=== PATIENT | male | born 1985 | race Caucasian/White ===

== ENCOUNTER 2017-06-19 10:05 | Inpatient (IN) | payer OTHER ==
[~2017-06-19] VITALS: Ht 177.8 cm; Wt 117.9 kg
[~2017-06-19 10:05] MED LIST: AMLO10TA2 PO; CHLO25TA2 PO; CLON0.1T14 PO; Gabapentin PO; HYDR-3895 PO; Naproxen PO
--- NOTE | 2017-06-19 11:50 | NUR ---
PRE-ADMISSION NOTE PT IS A 32 Y/O M, RECEIVED PT AT INTAKE FOR ETOH WITHDRAWAL. PT IS A/OX4, RESPIRATIONS EVEN AND UNLABORED. PT APPEARS NERVOUS, ANXIOUS, RESTLESS, HAS FACIAL FLUSHING, FINE TREMORS. INITIAL VS WERE BP: 141/92, HR: 94, RR: 18, O2 SAT: 97%. PT IS AMBULATORY WITH A STEADY GAIT. PT IS THE PRIMARY SOURCE OF INFO. PT REPORTS HAVING NKA. PAST MEDICAL HX OF HTN, DEPRESSION. 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 SX HX OF APPENDECTOMY. PT SMOKES 1 PACK DAILY. PT REPORTS HAVING FAMILY HX OF SUBSTANCE ABUSE. SUBSTANCE USE HX: 1. ETOH VODKA PO MORE OR EQUAL TO 1 LITER DAILY FOR 6 MONTHS. PT REPORTS LAST USED WAS 1.5 HRS AGO; PT STATES "I HAD 4 LARGE SWIGS OF VODKA." PT REPORTS HAVING WITHDRAWAL SYMPTOMS EVERY 2 HRS AND DRINKS WHEN HE STARTS TO FEEL SYMPTOMS. PT STATES HE IS CURRENTLY ANXIOUS AND STARTING TO SWEAT. PT REPORTS BEING ADMITTED PREVIOUSLY AT [facility] IN MAR 2016.
[2017-06-19 11:54] LABS: *AMPHETAMINE, URINE NEGATIVE (NEGATIVE); *BARBITURATE, URINE NEGATIVE (NEGATIVE); *CANNABINOID, URINE NEGATIVE (NEGATIVE); *COCCAINE, URINE NEGATIVE (NEGATIVE); *OPIATE, URINE NEGATIVE (NEGATIVE); *PHENCYCLIDINE SCREEN,URINE NEGATIVE (NEGATIVE)
[2017-06-19] MEDS ORDERED: DICYCLOMINE HCL 20 MG TABLET PO PRN (12:00)
[2017-06-19] MEDS ORDERED: LORAZEPAM 1 MG TABLET PO PRN (12:00)
[2017-06-19] MEDS ORDERED: MAG HYDROX/AL HYDROX/SIMETH 30 ML LIQUID UDC PO PRN (12:00)
[2017-06-19] MEDS ORDERED: THIAMINE HCL 200 MG/2 ML VIAL IM ONE (12:00)
[2017-06-19] MEDS ORDERED: LORAZEPAM 2 MG/1 ML VIAL IM PRN (12:00)
[2017-06-19] MEDS ORDERED: MIRALAX 17 GM POWD.PACK PO PRN (12:00)
[2017-06-19] MEDS ORDERED: ONDANSETRON ODT 4 MG TAB.RAPDIS SL PRN (12:00)
[2017-06-19] MEDS ORDERED: LOPERAMIDE HCL 2 MG CAPSULE PO PRN ×2 (12:00)
[2017-06-19] MEDS ORDERED: ACETAMINOPHEN 325 MG TABLET PO PRN (12:00)
[2017-06-19] MEDS ORDERED: MAGNESIUM HYDROXIDE 30 ML LIQUID UDC PO PRN (12:00)
[2017-06-19] MEDS ORDERED: ONDANSETRON 4 MG/2 ML VIAL IM PRN (12:00)
[2017-06-19 13:56] LABS: BASOPHILS % (AUTO) 0.6 % (0.0-2.0); EOSINOPHILS # (AUTO) 0.1 K/uL (0.0-0.7); HEMATOCRIT 40.6 % (36.7-47.1); HEMOGLOBIN 14.1 g/dL (12.5-16.3); LYMPHOCYTES # (AUTO) 1.8 K/uL (20.0-40.0); LYMPHOCYTES % (AUTO) 35.3 % (20.5-51.5); MEAN CORPUSCULAR HEMOGLOBIN 31.9 uug (23.8-33.4); MEAN CORPUSCULAR HGB CONC 35 g/dL (32.5-36.3); MONOCYTES # (AUTO) 0.3 K/uL (2.0-10.0); MONOCYTES % (AUTO) 5.2 % (0.0-11.0); NEUTROPHILS # (AUTO) 2.8 K/uL (1.8-8.9); NEUTROPHILS % (AUTO) 55.9 % (38.5-71.5); PLATELET COUNT (AUTO) 247 K/uL (152-348); RED BLOOD CELL COUNT(AUTO) 4.42 MIL/uL (4.06-5.63)
[2017-06-19 14:13] LABS: BILIRUBIN,TOTAL 0.5 mg/dL (0.2-1.0); MAGNESIUM 2.1 mg/dL (1.8-2.4); POTASSIUM 3.8 mmol/L (3.5-5.1); TOTAL PROTEIN, SERUM 7.4 g/dL (6.4-8.2)
--- NOTE | 2017-06-19 15:30 | NUR ---
ADMISSION NOTE PT IS A 32 Y/O M, ADMITTED ON 06/19/17 FOR MEDICALLY SUPERVISED ETOH WITHDRAWAL. PT IS A/OX4, RESPIRATIONS EVEN AND UNLABORED, LUNG SOUNDS BILATERALLY CLEAR. ALLL 4 ABD QUAD SOUNDS PRESENT, ABD IS SOFT AND NON-TENDER. PT HAS FACIAL FLUSHING, APPEARS ANXIOUS, RESTLESS, HAS FINE TREMORS AND MILD INTOXICATION. INITIAL VS WERE BP: 141/92, HR: 94, RR: 18, O2 SAT: 97%. PT'S HT IS 5'10 AND WT IS 260 LBS. PT IS FULLY AMBULATORY WITH A STEADY GAIT. SKIN IS INTACT. PT IS THE PRIMARY SOURCE OF INFO. PT REPORTS HAVING NKA. PAST MEDICAL HX OF HTN, DEPRESSION. HX OF SZ IN THE PAST R/T ETOH W/D. SX HX OF APPENDECTOMY. PT SMOKES 1 PACK DAILY. PT REPORTS HAVING FAMILY HX OF SUBSTANCE ABUSE. SUBSTANCE USE HX: 1. ETOH VODKA PO MORE OR EQUAL TO 1 LITER DAILY FOR 6 MONTHS. PT REPORTS LAST USED WAS 1.5 HRS PRIOR TO COMING INTO INTAKE; PT STATES "I HAD 4 LARGE SWIGS OF VODKA." PT REPORTS HAVING WITHDRAWAL SYMPTOMS EVERY 2 TO 3 HRS AND DRINKS WHEN HE STARTS TO FEEL SYMPTOMS SUCH NAUSEA, VOMITTING, DIAPHORESIS, EXTREME ANXIETY, AGITATION, HEADACHE AND GETS "SHAKY". PT STATES HE IS CURRENTLY ANXIOUS AND STARTING TO SWEAT. PT REPORTS BEING ADMITTED PREVIOUSLY AT [facility] IN MAR 2016 AND CONTINUED TX AT ABLE TO CHANGE AFTERWARDS. PT'S LONGEST PERIOD OF SOBRIETY IS 5 MONTHS BEFORE THIS CURRENT RELASPE. PT STATES HE IS TIRED OF FEELING W/D EVERY 2-3 HRS CAUSING LACK OF SLEEP, NEGATIVELY AFFECTING HIS WORK AND RELATIONSHIPS WITH FAMILY AND FRIENDS. PT REPORTS HIS DRINKING IS CAUSING HIM TO "MAKE MISTAKES" AND HIS GOAL IS BEING ABLE TO GET BACK TO WORK. PT REPORTS NOT BEING ABLE TO GET DISABILITY AND CONTINUE HIS MEDICATIONS AND THE TRAUMATIC EXPERIENCE OF FINDING HIS FATHER AFTER HANGING HIMSELF LED HIM TO SELF-MEDICATE. PT VERBALIZED HE IS COMMITED AND BELIEVES THIS TIME WILL BE DIFFERENT DUE TO HIS ACCEPTANCE OF "OUTSIDE HELP." PT IS PLACED ON A 5 DAY ATIVAN TAPER WITH PRN ATIVAN AND FALL AND SZ PRECAUTIONS. EDUCATED PT WITH UNIT RULES AND ORIENTED PT WITH UNIT AND STAFF MEMBERS. EDUCATED PT WITH PLAN OF CARE, S/S TO REPORT AND MED REGIMEN. SIDE RAILS UPX2 AND PADDED, BED IN LOW POSITION AND CALL LIGHT WITHIN REACH. WILL MONITOR AND PROVIDE CARE.
[2017-06-19 16:00] VITALS: BP 160/99
[2017-06-19] MEDS: LORAZEPAM 1 MG TABLET PO SCH ×2 (16:43→21:38)
[2017-06-19] MEDS ORDERED: AMLODIPINE 5 MG TABLET PO ONE (17:00)
--- NOTE | 2017-06-19 17:51 | NUR ---
PRN ATIVAN 2 MG PO PRN GIVEN FOR CIWA 17; PT PRESENTED FACIAL FLUSHING, INCREASED ANXIETY, INTENSE FEELINGS OF PANIC, AGITATION, RESTLESSNESS, NAUSEA, FIGETY, TREMORS NOTED, HAD POOR EYE CONTACT, PT STATED I'M NOT DOING GOOD" AND GRABBED AT HIS TORSO. WILL CONTINUE TO CLOSELY MONITOR.
[2017-06-19] MEDS: LORAZEPAM 1 MG TABLET PO PRN (17:52)
--- NOTE | 2017-06-19 18:51 | NUR ---
REASSESSMENT PT CIWA 15. PT STATES MED WAS EFFECTIVE MINIMALLY. WILL CONTINUE TO CLOSELY MONITOR.
--- NOTE | 2017-06-19 19:30 | NUR ---
START OF SHIFT Pt is a 32 y/o male admitted on 06/19/17 for ETOH withdrawal. PRN Ativan 2 mg and last CIWA 15 during day shift. Upon assessment pt presents with anxiety, restlessness, flat affect, increased HR and BP, disheveled appearance, unkempt room, unshaven, poor eye contact, guarded, difficulty sleeping, flushed skin, dysphoria and anhedonia. Medications due. Safety measures in place. Call light within reach. Will continue to monitor.
--- NOTE | 2017-06-19 19:31 | NUR ---
END OF SHIFT PT HAS BEEN ADMITTED ON THE FLOOR AT 1140. PT'S LAST CIWA 15 @1851. PT HAS INCREASED S/S OF W/D, PT PRESENTS HIGH ANXIETY, AGITATION, RESTLESSNESS, GROSS/FINE TREMORS, NAUSEA. PT HAS BEEN ISOLATIVE IN ROOM SINCE ADMISSION. PT ATE 50% OF MEALS, FLUID INTAKE: 796ML, VOIDED X1, BM 0. PT IS PLACED ON ATIVAN 5 DAY TAPER STARTING TODAY AND TOLERATING WELL. PT RECEIVED 1X ATIVAN 2MG PO PRN CIWA 17 @1751.
[2017-06-19 20:00] VITALS: BP 151/96
[2017-06-19] MEDS: CLONIDINE HCL 0.1 MG TABLET PO PRN (21:38)
--- NOTE | 2017-06-19 21:38 | NUR ---
PRN CLONIDINE ADMINISTRATION BP 151/96 HR 103, orders to give Clonidine. Safety measures in place. Call light within reach. Will continue to monitor.
--- NOTE | 2017-06-19 22:38 | NUR ---
PRN CLONIDINE REASSESSMENT BP 132/85 HR 92, Clonidine effective. Safety measures in place. Call light within reach. Will continue to monitor.
[2017-06-20] VITALS: BP 129/83
--- NOTE | 2017-06-20 | NUR ---
CIWA DEFERRED Pt laying in bed with eyes closed, CIWA deferred, to be assessed when pt is awake per orders. Respirations even and unlabored. Safety measures in place. Call light within reach. Will continue to monitor.
--- NOTE | 2017-06-20 07:00 | NUR ---
start of shift note: pt is in stable condition, no s/s of pain or discomfort, pt is sleeping in bed. pt is admitted to [facility] for ETOH withdrawal/dependence. pts last documented ciwa is 8. pt is tolerating ativan doses well without a/r reactions will continue to monitor pt for any changes.
--- NOTE | 2017-06-20 07:14 | NUR ---
END OF SHIFT Pt is a 32 y/o male admitted on 06/19/17 for ETOH withdrawal. Pt is on a 5 day Ativan taper that started on 06/19/17, tolerating well. Pt presented with anxiety, restlessness, flat affect, increased HR and BP, disheveled appearance, unkempt room, unshaven, poor eye contact, guarded, difficulty sleeping, flushed skin, dysphoria and anhedonia. Scheduled medications and PRN Clonidine administered, effective in S/S of withdrawal as verbalized by pt. Last CIWA 8. Pt slept 8 hours. Intake 1000 ml, void x 2, stool x 0. Safety measures in place. Call light within reach. Will continue to monitor.
[2017-06-20] MEDS: AMLODIPINE 5 MG TABLET PO SCH (08:59)
[2017-06-20] MEDS: FOLIC ACID 1 MG TABLET PO SCH (08:59)
[2017-06-20] MEDS: MULTIVITAMINS,THERAPEUTIC TABLET PO SCH (08:59)
[2017-06-20] MEDS: LORAZEPAM 1 MG TABLET PO SCH ×3 (08:59→20:19)
[2017-06-20] MEDS: THIAMINE HCL 100 MG TABLET PO SCH (08:59)
[2017-06-20] MEDS ORDERED: TUBERCULIN,PURIF.PROT.DERIV. 5 TU/0.1 ML TEST ID ONE (09:00)
[2017-06-20 10:08] VITALS: BP 120/77
[2017-06-20] MEDS: CLONIDINE HCL 0.1 MG TABLET PO PRN ×2 (12:10→20:19)
--- NOTE | 2017-06-20 12:13 | NUR ---
PRN administration: pt with increased B/p of 143/100, prn clonidine was administered. pt also verbalized increased anxiety, pt is noted with moderate tremors and inability to stay still. prn ativan 1 mg was administered for ciwa of 12 will monitor effectiveness of medications.
[2017-06-20 12:34] VITALS: BP 143/100
[2017-06-20 13:07] LABS: HEPATITIS B SURFACE AG Negative (Negative)
[2017-06-20 18:10] VITALS: BP 118/68
--- NOTE | 2017-06-20 18:42 | NUR ---
end of shift note: pt is admitted to [facility] for ETOH withdrawal/dependence. pt received prn ativan and clonidine in the afternoon and benefited from dose. pt fell asleep until dinner time. when assessing pt verbalized I'm feeing better offered medication and pt verbalized im ok right now thank you. last ciwa is 7. pt at this time is alert and oriented and just completed dinner. pt received a TB skin test and tolerated procedure well. pt tolerated ativan taper well without any A/R noted.
--- NOTE | 2017-06-20 19:30 | NUR ---
START OF SHIFT Pt is a 32 y/o male admitted on 06/19/17 for ETOH withdrawal. PRN Ativan and Clonidine administered and last CIWA 7 during day shift. Upon assessment pt presents with anxiety, restlessness, flat affect, increased HR and BP, tremors, intermittent nausea, intermittent sweats, intermittent headache, unshaven, numbness/pins and needles sensations in extremities, disheveled appearance, unkempt room, unshaven, poor eye contact, difficulty sleeping, flushed skin, dysphoria and anhedonia. Medications due. Safety measures in place. Call light within reach. Will continue to monitor.
[2017-06-20 20:00] VITALS: BP 157/102
--- NOTE | 2017-06-20 20:19 | NUR ---
PRN CLONIDINE ADMINISTRATION BP 157/102 and HR 131, orders to give Clonidine. Safety measures in place. Call light within reach. Will continue to monitor.
--- NOTE | 2017-06-20 21:19 | NUR ---
PRN CLONIDINE REASSESSMENT BP 145/94 and HR 107. Safety measures in place. Call light within reach. Will continue to monitor.
[2017-06-20] MEDS: LORAZEPAM 1 MG TABLET PO PRN (21:37)
--- NOTE | 2017-06-20 21:37 | NUR ---
PRN ATIVAN 2 MG ADMINISTRATION CIWA 13, pt presents with anxiety, restlessness, tremors, tactile disturbances in extremities. Safety measures in place. Call light within reach. Will continue to monitor.
--- NOTE | 2017-06-20 22:37 | NUR ---
PRN ATIVAN REASSESSMENT Pt laying in bed with eyes closed, medication noted effective. Safety measures in place. Call light within reach. Will continue to monitor.
[2017-06-21] VITALS (7 sets, daily range): BP systolic 101–153; BP diastolic 58–99
--- NOTE | 2017-06-21 06:57 | NUR ---
END OF SHIFT Pt is a 32 y/o male admitted on 06/19/17 for ETOH withdrawal. Pt is on a 5 day Ativan taper that started on 06/19/17, tolerating well. Pt presented with anxiety, restlessness, flat affect, increased HR and BP, tremors, intermittent nausea, intermittent sweats, intermittent headache, unshaven, numbness/pins and needles sensations in extremities, disheveled appearance, unkempt room, unshaven, poor eye contact, difficulty sleeping, flushed skin, dysphoria and anhedonia. Scheduled medications and PRN Clonidine and Ativan 2 mg administered, effective in S/S of withdrawal AEB CIWA 15 lowered to CIWA 13 during shift. Pt slept 7 hours. Intake 1250 ml, void x 3, stool x 0. Safety measures in place. Call light within reach. Pts needs have been met. Endorsed to day shift nurse.
--- NOTE | 2017-06-21 07:36 | NUR ---
START OF SHIFT Pt is a 32 yr old male, AA&Ox4. pt was admitted on 06/19/17 for ETOH withdrawal and is on 5 day Ativan taper as ordered. medication moises well. Received report from evening or night nurse supervisor nurse. Pt received Clonidine 0.1mg PO PRN for increase BP and Ativan PRN for s/s of w/d. Medication was effective. Pt slept for 7 hrs. Last CIWA score was 11. Pt is c/o anxiety this morning. Pt is noted with flat affect. Skin is intact, warm and moist to touch. Pt is on fall and seizure precautions. Call light is within reach. Will continue to monitor.
[2017-06-21] MEDS ORDERED: LORAZEPAM 1 MG TABLET PO SCH ×2 (09:00→21:00)
[2017-06-21] MEDS: AMLODIPINE 5 MG TABLET PO SCH (09:14)
[2017-06-21] MEDS: THIAMINE HCL 100 MG TABLET PO SCH (09:14)
[2017-06-21] MEDS: MULTIVITAMINS,THERAPEUTIC TABLET PO SCH (09:14)
[2017-06-21] MEDS: FOLIC ACID 1 MG TABLET PO SCH (09:14)
--- NOTE | 2017-06-21 09:18 | NUR ---
PRN GIVEN Pt c/o heartburn after breakfast. Maalox 30ml PRN was given as ordered. Medication moises well. Will continue to monitor.
--- NOTE | 2017-06-21 10:18 | NUR ---
PRN RE-ASSESSMENT Maalox 30ml PRN was effective. Pt denies any heartburn at this time. Will continue to monitor.
[2017-06-21] MEDS: LORAZEPAM 1 MG TABLET PO SCH ×2 (13:20→17:00)
[2017-06-21] MEDS: CLONIDINE HCL 0.1 MG TABLET PO PRN (13:22)
--- NOTE | 2017-06-21 13:24 | NUR ---
PRN GIVEN Pt c/o increase anxiety and states he feels like he has "palpitations". BP was noted at 153/99 and HR at 120. Clonidine 0.1mg PO PRN was given for increase BP and Ativan 1mg PO as scheduled at 1300 was given. Encouraged increase fluid intake. Will continue to monitor.
--- NOTE | 2017-06-21 14:33 | NUR ---
PRN RE-ASSESSMENT Clonidine 0.1mg PO PRN was effective. BP is 146/89 and HR 110. Encouraged increase fluids. Will continue to monitor.
--- NOTE | 2017-06-21 17:00 | NUR ---
MEDICATION HELD Pt was noted to be too sedated. Ativan 1mg PO as scheduled at 1700 was held. Will continue to monitor.
--- NOTE | 2017-06-21 19:09 | NUR ---
END OF SHIFT Pt is a 32 yr old male, AA&Ox4. Pt was admitted on 06/19/17 for ETOH withdrawal and is on a 5 day Ativan taper as ordered. Medication moises well. Pt has been cooperative with medication regimen and plan of care. Pt has attended group therapy in the morning. Pt has been c/o increase anxiety and heartburn. Pt received Maalox 30ml PO PRN at 0918 and Clonidine 0.1mg PO PRN for increase BP and anxiety at 1322. Medication was effective. Pt was noted with facial redness and c/o sweats. Skin is intact, warm and moist to touch. Last CIWA score was 11. Safety precautions observed. Call light is within reach. Endorsed to night filler nurse to continue with care.
[2017-06-21] MEDS ORDERED: BACLOFEN 20 MG TABLET PO PRN (19:15)
--- NOTE | 2017-06-21 19:30 | NUR ---
START OF SHIFT Pt is a 32 y/o male admitted on 06/19/17 for ETOH withdrawal. PRN Maalox and Clonidine administered and last CIWA 11 during day shift. Scheduled Ativan 1 mg at 1700 held. Upon assessment pt presents with anxiety, restlessness, inability to sit still, flat affect, increased HR and BP, tremors, nausea, sweats, headache, unshaven, numbness/pins and needles sensations in extremities, disheveled appearance, unkempt room, unshaven, poor eye contact, difficulty sleeping, flushed skin, dysphoria and anhedonia. Medications due. Safety measures in place. Call light within reach. Will continue to monitor.
--- NOTE | 2017-06-21 19:55 | NUR ---
PRN ZOFRAN ODT ADMINISTRATION Pt reports nausea, upon arrival to room, pt had one episode of vomiting. Safety measures in place. Call light within reach. Will continue to monitor.
[2017-06-21] MEDS: IBUPROFEN 400 MG TABLET PO PRN (20:10)
[2017-06-21] MEDS: GABAPENTIN 300 MG CAPSULE PO SCH (20:10)
--- NOTE | 2017-06-21 20:10 | NUR ---
PRN MOTRIN ADMINISTRATION Pt reports headache and back pain 05/31. Safety measures in place. Call light within reach. Will continue to monitor.
--- NOTE | 2017-06-21 20:25 | NUR ---
RAJENDRA PERSON ODT REASSESSMENT Pt reports no further episodes of vomiting and that nausea improved to tolerable level. Safety measures in place. Call light within reach. Will continue to monitor.
[2017-06-21] MEDS ORDERED: AMLODIPINE 5 MG TABLET PO SCH (21:00)
--- NOTE | 2017-06-21 21:10 | NUR ---
PRN MOTRIN REASSESSMENT Pt reports headache has ceased and back pain is tolerable. Safety measures in place. Call light within reach. Will continue to monitor.
[2017-06-22] VITALS (7 sets, daily range): BP systolic 112–148; BP diastolic 68–91
--- NOTE | 2017-06-22 07:08 | NUR ---
END OF SHIFT Pt is a 32 y/o male admitted on 06/19/17 for ETOH withdrawal. Pt is on a 5 day Ativan taper that started on 06/19/17, tolerating well. Pt presented with anxiety, restlessness, inability to sit still, flat affect, increased HR and BP, tremors, nausea, sweats, headache, unshaven, intermittent numbness/pins and needles sensations in extremities, disheveled appearance, unkempt room, unshaven, poor eye contact, difficulty sleeping, flushed skin, dysphoria and anhedonia. Scheduled medications and PRN Zofran odt and Motrin administered, effective in S/S of withdrawal AEB CIWA 17 lowered to CIWA 10 during shift. Pt slept 6 hours. Intake 500 ml, void x 1, stool x 0. Safety measures in place. Call light within reach. Pts needs have been met. Endorsed to day shift nurse.
--- NOTE | 2017-06-22 07:38 | NUR ---
START OF SHIFT Pt is a 32 yr old male, AA&Ox4. pt was admitted on 06/19/17 for ETOH withdrawal and is on 5 day Ativan taper as ordered. medication moises well. Received report from restaurant shift leader nurse. Pt received Zofran SL PRN for n/v and Motrin PRN for pain. Medication was effective. Pt slept for 6 hrs. Last CIWA score was 10. Pt is currently in bed sleeping with respirations even and unlabored. Skin is intact, warm and moist to touch. Pt is on fall and seizure precautions. Safety precautions observed. Call light is within reach. Will continue to monitor.
[2017-06-22] MEDS: MULTIVITAMINS,THERAPEUTIC TABLET PO SCH (08:43)
[2017-06-22] MEDS: CLONIDINE HCL 0.1 MG TABLET PO PRN (08:43)
[2017-06-22] MEDS: THIAMINE HCL 100 MG TABLET PO SCH (08:43)
[2017-06-22] MEDS: FOLIC ACID 1 MG TABLET PO SCH (08:43)
[2017-06-22] MEDS: AMLODIPINE 10 MG TABLET PO SCH (08:43)
[2017-06-22] MEDS: GABAPENTIN 300 MG CAPSULE PO SCH ×3 (08:43→20:21)
--- NOTE | 2017-06-22 08:43 | NUR ---
PRN GIVEN Pt BP was noted at 148/91. Pt is noted with flat affect and is noted fearful. Clonidine 0.1mg PO PRN was given for increase BP. Encouraged increase fluid intake. will continue to monitor
[2017-06-22] MEDS ORDERED: LORAZEPAM 1 MG TABLET PO SCH ×3 (09:00→21:00)
--- NOTE | 2017-06-22 10:00 | NUR ---
PRN RE-ASSESSMENT Clonidine 0.1mg PO PRN was effective. BP is 130/77 Encouraged increase fluid intake. Will continue to monitor.
--- NOTE | 2017-06-22 11:00 | NUR ---
NSG NOTES Pt c/o headache 06/30. Motrin 400mg PO PRN was offered but pt refused to take. Pt was encouraged increase fluid intake. Pt denies any n/v. Will continue to monitor.
--- NOTE | 2017-06-22 11:02 | NUR ---
Client was prompted to attend daily group counseling at 11 and at 3:30. Client agreed to attend.
[2017-06-22] MEDS ORDERED: HYDROXYZINE PAMOATE 25 MG CAPSULE PO PRN (17:30)
[2017-06-22] MEDS ORDERED: hydrALAZINE HCL 50 MG TABLET PO PRN (17:30)
[2017-06-22] MEDS: IBUPROFEN 400 MG TABLET PO PRN (17:41)
--- NOTE | 2017-06-22 17:41 | NUR ---
PRN GIVEN Pt c/o increase anxiety and headache 07/31. Pt is observed fidgety and with flat affect. Motrin 400mg PO PRN and Vistaril 25mg PO PRN was given as ordered. Encouraged increase fluid intake. Will continue to monitor.
--- NOTE | 2017-06-22 19:10 | NUR ---
START OF SHIFT NOTE: Patient is a 32 year old male presented for safety withdrawal from ETOH/"Vodka", continues 5 day Ativan taper started on 06/19/2017. Patient is alert and oriented x4. Patient reports NKA, is on Full Code, Regular Diet, Fall and Seizures precautions. Patient denies seizures history. Past Medical History: HTN, Anxiety, Depression. Last CIWA=14 at 1600 per outgoing day shift nurse report. Patient presented anxious with flat affect and poor eye contact. Patient c/o agitation, increased anxiety, nervousness, tremors, sweating, restlessness, and fatigue. VS WNL at 1600. Patient denies SI/HI. PRN Clonidine 0.1 mg PO administrated for BP 148/91 was effective: in one hour BP decreased to 130/77. PRN Motrin 400 mg PO administrated for generalized body aches at 1741, and PRN Vistaril 25 mg PO administrated for anxiety at 1741 were effective. Patient remains compliant with treatment, medications, and diet regime. Encouraged expresses his feeling. Encouraged to increase oral fluids intake as tolerated. Encouraged to attend groups activities. All needs met. Safety measures in place: Call light within reach, bed locked in lowest position, padded bed rails up x2. Endorsed by day shift nurse. Will to continue monitor closely.
--- NOTE | 2017-06-22 19:10 | NUR ---
END OF SHIFT Pt is a 32 yr old male, AA&Ox4. Pt was admitted on 06/19/17 for ETOH withdrawal and is on a 5 day Ativan taper as ordered. Medication moises well. Pt has been cooperative with medication regimen. Pt has been noted with increase fatigue and remained in his room throughout the day. Pt c/o restlessness and stated he was not able to sleep well during the night. Pt c/o increase anxiety and has been noted fidgety. Pt is noted with flat affect and facial sweats. Pt received Clonidine 0.1mg PO PRN for increase BP, Vistaril PRN for anxiety and Motrin PRN for headache. Medication was effective. Last CIWA score was 14. Safety precautions observed. Call light is within reach. Endorsed to mold shifter nurse to continue with care.
[2017-06-22] MEDS: CLONIDINE HCL 0.1 MG TABLET PO SCH (20:21)
[2017-06-22] MEDS: diphenhydrAMINE 50 MG CAPSULE PO PRN (20:22)
--- NOTE | 2017-06-22 20:22 | NUR ---
PRN BENADRYL 50 MG 1 CAP PO ADMINISTRATION Patient c/o insomnia and asked aid. Benadryl 50 mg PO administrated PRN with full glass of water as ordered. Patient tolerated well. All needs met. Safe and calm environment with minimized noises was provided. Safety measures on place. Call light within reach, bed in lowest position locked, padded rails up bilaterally. Will continue to monitor closely.
--- NOTE | 2017-06-22 21:22 | NUR ---
RE-ASSESSMENT Patient is sleeping. RR 16. Respirations even and unlabored. Benadryl 50 mg PO administrated PRN for insomnia at 2049 was effective. Safe and calm environment with minimized noises was provided. All needs met. Safety measures on place. Call light within reach, bed in lowest position locked, padded rails up bilaterally. Will continue to monitor closely. Addendum: 06/23/17 at 0025 by ROSAS PARISH RN Benadryl 50 mg PO administrated PRN for insomnia at 2021 was effective.
[2017-06-23] VITALS (7 sets, daily range): BP systolic 95–169; BP diastolic 58–104
--- NOTE | 2017-06-23 04:00 | NUR ---
VS REFUSED, CIWA DEFERRED VS refused, CIWA deferred @0400 due to patient sleeping; to be assessed and scored while patient is awake. RR:15. Patient's respirations are even and unlabored. All needs met. Safe and calm environment with minimized noises was provided. Safety measures on place. Call light within reach, bed locked in lowest position, padded rails up bilaterally. Will continue to monitor closely.
--- NOTE | 2017-06-23 07:18 | NUR ---
END OF SHIFT NOTE: Endorsed 32 year old male admitted for Alcohol /Vodka withdrawal, continues 5 Day Ativan Taper which tolerated well. Withdrawal symptoms was closely monitored.Patient is alert and oriented x4. Speech is clear. The patient noted disheveled, unshaven/uncombed. He is c/o increased anxiety and irritability. Emotional support provided, and patient 's reassuring. Education in safety and hygiene care provided. Encouraged to independently perform hygiene care. Initial CIWA=11 at 2000. Last CIWA=8 at 0000. Patient presented with anxiety, agitation, depression, irritability, fatigue, nervousness, stomach cramps, tremors, sweating, and insomnia. PRN Benadryl 50 mg PO administrated PRN for insomnia at 2049 was effective. Safe and calm environment with minimized noises was provided. Patient slept 8 hours, intake 1,286 ml, voided x3, stool x1. All needs met. Safety measures in the place by hospital policy: Call light within reach, bed in the lowest position and locked, padded rails up x2. Patient endorsed to day shift nurse.
--- NOTE | 2017-06-23 07:30 | NUR ---
START OF SHIFT Pt is a 32 yr old male, AA&Ox4. pt was admitted on 06/19/17 for ETOH withdrawal and is on 5 day Ativan taper as ordered. medication moises well. Received report from shift coordinator nurse. Pt received Benadryl PRN for sleep. . Medication was effective. Pt slept for 8 hrs. Last CIWA score was 8 at 0000. Pt is currently in bed sleeping with respirations even and unlabored. Skin is intact, warm and moist to touch. Pt is on fall and seizure precautions. Safety precautions observed. Call light is within reach. Will continue to monitor.
[2017-06-23] MEDS ORDERED: LORAZEPAM 1 MG TABLET PO SCH (09:00)
[2017-06-23] MEDS: LORAZEPAM 1 MG TABLET PO SCH ×3 (09:04→20:38)
[2017-06-23] MEDS: MULTIVITAMINS,THERAPEUTIC TABLET PO SCH (09:04)
[2017-06-23] MEDS: AMLODIPINE 10 MG TABLET PO SCH (09:04)
[2017-06-23] MEDS: GABAPENTIN 300 MG CAPSULE PO SCH ×3 (09:05→20:38)
[2017-06-23] MEDS: CLONIDINE HCL 0.1 MG TABLET PO SCH ×2 (09:05→20:38)
[2017-06-23] MEDS: FOLIC ACID 1 MG TABLET PO SCH (09:05)
[2017-06-23] MEDS: THIAMINE HCL 100 MG TABLET PO SCH (09:05)
--- NOTE | 2017-06-23 12:22 | NUR ---
Client was prompted to attend twice daily group counseling sessions with the next group session being at 3:30pm today.
--- NOTE | 2017-06-23 18:57 | NUR ---
END OF SHIFT Pt is a 32 yr old male, AA&Ox4. Pt was admitted on 06/19/17 for ETOH withdrawal and is on a 5 day Ativan taper as ordered. Medication moises well. Pt has been cooperative with medication regimen and plan of care. Pt has been attending group during the day. Pt c/o anxiety but was able to cope with anxiety level. Skin is intact, warm and moist to touch. Facial redness was noted. Last CIWA score was 6 at 1600. No PRNs were given during the day. Pt was encouraged increase fluid intake for hydration. Safety precautions observed. Call light is within reach. Endorsed to machine pie maker nurse to continue with care.
--- NOTE | 2017-06-23 18:57 | NUR ---
START OF SHIFT NOTE: Presented patient is a 32 year old male for safety withdrawal from ETOH/Vodka, continues 5 day Ativan Taper. He is tolerated well, and remains compliant with treatment, medications and diet regime. The patient is alert and oriented x4. Patient c/o "feel sad and unhappy", and appears worry with poor eye contact, and with blunted affect. Encouraged to express his feeling. Last CIWA=6 per day shift nurse report: c/o anxiety, agitation, nervousness, restlessness, and fatigue. No PRN Medications administrated during day shift. Skin is intact, warm and dry to touch. Encouraged to increase oral fluids intake as tolerated. The patient's been attending group activities. All needs met. Safety measures in place: Call light within reach, bed locked in lowest position, padded bed rails up x2. Endorsed by day shift nurse. Will to continue monitor closely.
[2017-06-23] MEDS: diphenhydrAMINE 50 MG CAPSULE PO PRN (20:38)
--- NOTE | 2017-06-23 21:38 | NUR ---
RE-ASSESSMENT Patient is sleeping. RR 16. Respirations even and unlabored. Benadryl 50 mg PO administrated PRN for insomnia at 2037 was effective. Safe and calm environment with minimized noises was provided. All needs met. Safety measures on place. Call light within reach, bed in lowest position locked, padded rails up bilaterally. Will continue to monitor closely.
[2017-06-24] VITALS: BP 117/70
--- NOTE | 2017-06-24 04:00 | NUR ---
VS REFUSED, CIWA DEFERRED VS refused, CIWA deferred @0400 due to patient sleeping; to be assessed and scored while patient is awake. RR:15. Patient's respirations are even and unlabored. Safe and calm environment with minimized noises was provided. Safety measures on place. Call light within reach, bed locked in lowest position, padded rails up bilaterally. Will continue to monitor closely.
--- NOTE | 2017-06-24 07:02 | NUR ---
END OF SHIFT NOTE: Patient is a 32 year old male continues 5 Day Ativan Taper for ETOH/"Vodka" withdrawal. Patient is alert and oriented x4 with stable gate, and soft clear speech. Patient denies History of Seizures. Patient appears anxious, sad with poor eye contact, and with flat affect. Patient noted to be disheveled, unshaved, unkempt and uncombed. Initial CIWA=9 at 2000. Latest CIWA= 8 at 0000: Patient presented with anxiety, agitation, nervousness, tremors, sweating, insomnia, restless legs, and fatigue. CIWA deferred @0400 due to patient sleeping; to be assessed and scored while patient is awake. Skin is intact, warm and dry to touch. PRN Benadryl administrated for insomnia at 2037 was effective. Calm and safety environment with minimized noises was provided. Patient slept 7 hours, intake 740 ml, voided x1, stool x1. Encouraged to fluid intake as tolerated. All needs met. Safety measures in the place: Call light within reach, bed in the lowest position and locked, padded rails up x2. Patient endorsed to day shift nurse.
--- NOTE | 2017-06-24 07:36 | NUR ---
BEGINNING OF SHIFT Patient endorsement report received from plant operator/shift supervisor nurse, all pertinent information discussed. Patient is a 32 year old male with admitting Dx: etoh Withdrawal. Patient is Currently under close observation, Patient continues on Ativan taper as ordered, well tolerated. slept for 7 hours. Patient with last ciwa score of: 8. Fall and seizure precautions observed at all times. Patient awake, alert and oriented x4, will educated regarding plan of care for the day, and medication regimen. Patient received PRN: Benadryl as ordered medication was effective. fall and seizure precautions observed and in place. will continue to monitor closely. safety measures in place.
[2017-06-24 08:26] VITALS: BP 149/96
[2017-06-24] MEDS: THIAMINE HCL 100 MG TABLET PO SCH (08:27)
[2017-06-24] MEDS: GABAPENTIN 300 MG CAPSULE PO SCH ×3 (08:27→20:24)
[2017-06-24] MEDS: CLONIDINE HCL 0.1 MG TABLET PO SCH ×3 (08:27→20:24)
[2017-06-24] MEDS: AMLODIPINE 10 MG TABLET PO SCH (08:27)
[2017-06-24] MEDS: FOLIC ACID 1 MG TABLET PO SCH (08:27)
[2017-06-24] MEDS: MULTIVITAMINS,THERAPEUTIC TABLET PO SCH (08:27)
[2017-06-24] MEDS ORDERED: LORAZEPAM 1 MG TABLET PO SCH (09:00)
[2017-06-24 12:07] VITALS: BP 119/71
[2017-06-24] MEDS ORDERED: AMLO10TA2 PO (14:33)
[2017-06-24] MEDS ORDERED: CLON0.1T14 PO (14:33)
[2017-06-24] MEDS ORDERED: DIPH50CA37 PO (14:33)
[2017-06-24] MEDS ORDERED: BACL20TA PO (14:33)
[2017-06-24] MEDS ORDERED: GABA-534 PO (14:33)
[2017-06-24] MEDS ORDERED: HYDR-3895 PO (14:33)
[2017-06-24] MEDS ORDERED: IBUP-1953 PO (14:33)
[2017-06-24 16:30] VITALS: BP 134/84
--- NOTE | 2017-06-24 18:59 | NUR ---
END OF SHIFT Patient alert and oriented x4, monitored closely during shift. patient has a flat affect and depressed mood. During shift Patient presented with: anxiety,barely sweating, agitation and fine tremors. Patient with initial ciwa score of: 8, last ciwa score of: 6. Received no PRN medications during shift. Patient completed Ativan taper as ordered, received last dose this morning,c continues under very close observation. Patient is scheduled to be discharged tomorrow morning, noted self motivated towards sobriety. Patient encouraged participation in therapy sessions, patient denies any SI/HI, Patient was encouraged to verbalize feelings, encouraged to develop coping skills and utilization of non pharmacological interventions. Patients safety measures are in place. call light kept within reach, will continue to monitor. Endorsed to tea bag packer nurse, all pertinent information discussed.
--- NOTE | 2017-06-24 18:59 | NUR ---
START OF SHIFT NOTE: Endorsed patient is a 57 year old male presented for safety withdrawal from ETOH/Vodka, completed ordered 5 day Ativan Taper. Patient remains compliant with treatment, medications, and diet regime. Patient is alert and oriented x4. Patient appears with anxious mood. Encouraged to express his feelings. Emotional support provided, and patient 's reassuring. Last CIWA= 6 @1600. Patient presented with anxiety, agitation, nervousness, tremors, sweating, restlessness, and fatigue per day shift nurse report. No PRN medications administrated during day shift. Encouraged to fluids intake as tolerated. Patient scheduled for discharging tomorrow, on 06/25/2017 at 0930. All needs met. Safety measures in place: Call light within reach, bed is locked and in lowest position, padded bed rails up bilaterally. Patient endorsed by outgoing day shift nurse. Will continue to monitor closely.
[2017-06-24 20:00] VITALS: BP 144/81
[2017-06-24] MEDS: diphenhydrAMINE 50 MG CAPSULE PO PRN (20:24)
--- NOTE | 2017-06-24 20:24 | NUR ---
PRN BENADRYL 50 MG 1 CAP PO ADMINISTRATION Benadryl 50 mg PO administrated PRN insomnia with full glass of water as ordered. Patient tolerated well. Safe and calm environment with minimized noises was provided. All needs met. Safe and calm environment with minimized noises was provided. Safety measures on place. Call light within reach, bed in lowest position locked, padded rails up bilaterally. Will continue to monitor closely.
--- NOTE | 2017-06-24 21:24 | NUR ---
RE-ASSESSMENT Benadryl 50 mg PO administrated PRN for insomnia at 2023 was effective. Patient is sleeping. Respirations even and unlabored. RR 15. Safe and calm environment with minimized noises was provided. All needs met. Safety measures on place. Call light within reach, bed in lowest position locked, padded rails up bilaterally. Will continue to monitor closely.
--- NOTE | 2017-06-25 | NUR ---
VS REFUSED, CIWA DEFERRED VS refused, CIWA deferred @0000 due to patient sleeping; to be assessed and scored while patient is awake. Patient's respirations are even and unlabored. RR:16. Safe and calm environment with minimized noises was provided. Safety measures on place. Call light within reach, bed locked in lowest position, padded rails up bilaterally. Will continue to monitor closely.
--- NOTE | 2017-06-25 04:00 | NUR ---
VS REFUSED, CIWA DEFERRED VS refused, CIWA deferred at 0400 due to patient sleeping; to be assessed and scored while patient is awake. Patient's respirations are even and unlabored. RR:16. Safe and calm environment with minimized noises was provided. Safety measures on place. Call light within reach, bed locked in lowest position, padded rails up bilaterally. Will continue to monitor closely.
--- NOTE | 2017-06-25 07:25 | NUR ---
END OF SHIFT NOTE: 57 year old male completed 5 Day Ativan Taper for Alcohol/Vodka withdrawal. Patient remains compliant with treatment, medications, and diet regime. Withdrawal symptoms closely monitored. Patient is alert and oriented x4. He is appears worry, sad with anxious mood. Emotional support and reassuring provided. He is noted unshaven, unkempt, and uncombed. Last CIWA=10 at 1999. Patient presented with anxiety, agitation, nervousness, tremors, restlessness, sweating, insomnia, and nasal stuffiness. VS refused, CIWA deferred at 0000, and at 0400 due to patient sleeping; to be assessed and scored while patient is awake. PRN Benadryl 50 mg 1 tab PO administrated for insomnia at 2023 was effective. Patient slept 7 hours, intake 1,654 ml, voided x3, stoolx1. Encouraged to increased oral fluids intake as tolerated. Patient scheduled for discharging today at 0930. All needs met. Safety measures in the place by hospital policy: Call light within reach, bed in the lowest position locked, padded rails up x2. Patient endorsed to day shift nurse.
[2017-06-25 08:00] VITALS: BP 136/88
--- NOTE | 2017-06-25 08:00 | NUR ---
Start of shift note; Received report from night nurse. Patient is a 32 year old male admitted on 06/19/17 for ETOH withdrawals. Patient was placed on a 5 day Ativan taper and completed treatment without any adverse reactions. Patient is medically cleared for discharge today. All safety measures secured. Will continue to monitor patient.
[2017-06-25 08:21] VITALS: BP 136/88
[2017-06-25] MEDS: AMLODIPINE 10 MG TABLET PO SCH (08:21)
[2017-06-25] MEDS: FOLIC ACID 1 MG TABLET PO SCH (08:21)
[2017-06-25] MEDS: GABAPENTIN 300 MG CAPSULE PO SCH (08:21)
[2017-06-25] MEDS: CLONIDINE HCL 0.1 MG TABLET PO SCH (08:21)
[2017-06-25] MEDS: THIAMINE HCL 100 MG TABLET PO SCH (08:22)
[2017-06-25] MEDS: MULTIVITAMINS,THERAPEUTIC TABLET PO SCH (08:22)
--- NOTE | 2017-06-25 09:16 | NUR ---
Discharge note; Patient is AOX4. Patient completed treatment without any adverse reactions. Patient is medically cleared for discharge. Patient denies S/I and H/I. Patient was escorted by [employer]. Patient left the hospital at exactly 0916. Patient left in a stable condition
== END 2017-06-25 09:16 | disposition other institution (70) | DRG 895 ==
LOC: SRC 11:01
PROVIDERS: ADMIT Internal Medicine; ATTEND Internal Medicine
PROC: HZ2ZZZZ Detoxification Services for Substance Abuse Treatment (ICD-10-PCS; principal; 2017-06-19)
PROC: HZ41ZZZ Group Counseling for Substance Abuse Treatment, Behavioral (ICD-10-PCS; 2017-06-21)
PROC: HZ31ZZZ Individual Counseling for Substance Abuse Treatment, Behavioral (ICD-10-PCS; 2017-06-22)
DX: F10.230 Alcohol dependence with withdrawal, uncomplicated (principal); K70.10 Alcoholic hepatitis without ascites; I15.9 Secondary hypertension, unspecified; E66.9 Obesity, unspecified; Y90.3 Blood alcohol level of 60-79 mg/100 ml; Z68.37 Body mass index [BMI] 37.0-37.9, adult; G47.00 Insomnia, unspecified; Z81.1 Family history of alcohol abuse and dependence; F41.9 Anxiety disorder, unspecified; F17.210 Nicotine dependence, cigarettes, uncomplicated; R73.9 Hyperglycemia, unspecified
CPT/HCPCS: 36415; 70030-TC; 80307; 83735; 85025; 86580; 86592; 86705; 86803; 87340; 87806; G0480; J3411; Q0162; Q0163